=== PATIENT | female | born 1955 | race Caucasian/White ===

== ENCOUNTER → 2018-07-04 | Outpatient (CLI) | payer MEDICARE ==
[~2018-07-04] MED LIST: ASPI-650 PO; CITA20TA9 PO; EZET10TA18 PO; HYDR25TA6 PO; LEVO25TA4 PO; LISI-167 PO; METO25TA35 PO; TEMA30CA PO; [UNRECOGNIZED DRUG - OTHER]
== END | disposition home or self-care (01) ==
LOC: CARD 08:49
PROVIDERS: ATTEND Psychiatry & Neurology Neurology
DX: G45.9 Transient cerebral ischemic attack, unspecified (principal)
CPT/HCPCS: 95819

== ENCOUNTER → 2018-07-24 | Outpatient (CLI) | payer MEDICARE | END | disposition home or self-care (01) | LOC: CVU 06:41 | PROVIDERS: ATTEND Psychiatry & Neurology Neurology | DX: I65.22 Occlusion and stenosis of left carotid artery (principal); G45.9 Transient cerebral ischemic attack, unspecified | CPT/HCPCS: 93880 ==